=== PATIENT | female | born 1980 | race Caucasian/White ===

== ENCOUNTER 2022-11-17 02:42 | Emergency (ER) | payer SELFPAY ==
[~2022-11-17] VITALS: Ht 167.6 cm; Wt 59.0 kg
[2022-11-17] MEDS ORDERED: MIDAZOLAM HCL 2 MG/2 ML VIAL IV ONE (03:00)
[2022-11-17] MEDS ORDERED: ETOMIDATE 2MG/ML 10ML VIAL IV ONE (03:15)
[2022-11-17] MEDS ORDERED: SUCCINYLCHOLINE CHLORIDE 200MG/10ML IV ONE (03:15)
[2022-11-17] MEDS ORDERED: PROPOFOL 10MG/ML 100ML 100 ML IV ONE ×2 (03:15→08:30)
[2022-11-17 03:20] VITALS: PULSE 119; RESP 34
[2022-11-17] MEDS ORDERED: MIDAZOLAM 100MG/100ML PMX 100 ML IV PRN (03:30)
[2022-11-17] MEDS ORDERED: FENTANYL 2500MCG/250ML PMX 250 ML IV ONE (03:30)
[2022-11-17 04:05] LABS: BASOPHILS % 0.5 % (0.0-2.0); HEMATOCRIT. 37.4 % (36.0-48.0); HEMOGLOBIN. 12.4 g/dL (12.0-16.0); LYMPHOCYTES % 14.9 % (20.0-50.0); MEAN CORPUSCULAR HEMOGLOBIN 27.9 pg (28.0-32.0); MEAN CORPUSCULAR HGB CONC 33.1 g/dL (31.0-37.0); MEAN CORPUSCULAR VOLUME 84.4 fL (81.0-99.0); MEAN PLATELET VOLUME 7.7 fl (7.4-10.4); MONOCYTES % 4.4 % (2.0-8.0); NEUTROPHILS % 80.2 % (40.0-76.0); PLATELET 294 x1000/uL (130-400); RED BLOOD CELL COUNT 4.43 mill/uL (4.2-5.4); RED CELL DISTRIBUTION WIDTH 13.2 % (11.6-14.6); WHITE BLOOD COUNT 12.9 x1000/uL (4.5-11.0)
[2022-11-17 04:13] LABS: CHLORIDE 104 mEq/L (98-107); INDEX HEMOLYSI 3 (1-3); INDEX ICTERIC 1 (1-4); INDEX LIPEMIC 1 (1-3); POTASSIUM 4.1 mEq/L (3.5-5.1); SODIUM 135 mEq/L (136-145)
[2022-11-17 04:15] LABS: BG CARBOXYHEMOGLOBIN 0.3 % (0.5-1.5); BG DEOXYHEMOGLOBIN 0.1 % (0.0-5.0); BG FRACTION INSPIRED OXYGEN 100; BG HCO3 ACT 24.8 mmol/L (22.0-26.0); BG METHEMOGLOBIN 0.4 % (0.0-1.5); BG OXYGEN SATURATION 99.9 % (92.0-98.5); BG OXYHEMOGLOBIN 99.2 % (94.0-97.0); BG PCO2 26.7 mmHg (35.0-45.0); BG PH 7.586 (7.350-7.450); BG PO2 458.7 mmHg (75.0-100.0); BG SAMPLE SITE RIGHT RADIAL; BG TOTAL HEMOGLOBIN 13.2 g/dL (12.0-18.0); BG TOTAL RESPIRATORY RATE 34 b/min; BG VENT MODE VENT - AC
[2022-11-17 04:17] LABS: AMMONIA 20 uMol/L (<32)
[2022-11-17 04:25] LABS: ALANINE AMINOTRANSFERASE 49 IU/L (13-61); ALBUMIN 3.7 g/dL (3.4-5.0); ASPARTATE AMINOTRANSFERASE 61 IU/L (15-37); BILIRUBIN TOTAL 0.1 mg/dL (0.1-1.0); CALCIUM 8.2 mg/dL (8.5-10.1); CARBON DIOXIDE 25 mEq/L (21-32); CREATININE 0.5 mg/dL (0.6-1.3); ETHANOL BLOOD < 10 mg/dL (-10); GLUCOSE 179 mg/dL (70-105); NT PRO B-TYPE NATRIURETIC PEP 272 pg/mL (5-125); PROTEIN TOTAL 7.4 g/dL (6.0-8.3); UREA NITROGEN BLOOD 13 mg/dL (7-21)
[2022-11-17 04:27] LABS: PROTHROMBIN TIME 10.9 sec (9.6-11.0)
[2022-11-17 04:51] VITALS: PULSE 73; RESP 37
[2022-11-17 05:20] LABS: TROPONIN I HIGH SENSITIVITY 74 ng/L (<54)
[2022-11-17 05:21] LABS: LACTIC ACID 2.6 mmol/L (0.4-2.0)
[2022-11-17] MEDS ORDERED: LEVETIRACETAM 500MG PREMIX 100 ML IV ONE (05:45)
[2022-11-17] MEDS ORDERED: MIDAZOLAM HCL 100 MG in SODIUM CHLORIDE 0.9% 100 ML IV PRN (05:45)
[2022-11-17] MEDS ORDERED: FENTANYL CITRATE 2,500 MCG in SODIUM CHLORIDE 0.9% 200 ML IV PRN (06:00)
[2022-11-17] MEDS ORDERED: MANNITOL 12.5G (25%) VIAL 50ML IV ONE (06:00)
[2022-11-17] MEDS ORDERED: MANNITOL 20% 62.5 ML IV NR (06:00)
[2022-11-17] MEDS ORDERED: IOHEXOL-350 100 ML BOTTLE ONE (06:07)
[2022-11-17] MEDS ORDERED: NICARDIPINE 40MG/200ML PREMIX 200 ML IV PRN (06:15)
[2022-11-17 07:14] LABS: CLARITY URINE TURBID (CLEAR); COLOR URINE YELLOW (YELLOW); GLUCOSE URINE NEGATIVE (NEGATIVE); KETONES URINE NEGATIVE (NEGATIVE); LEUKOCYTE ESTERASE URINE NEGATIVE (NEGATIVE); NITRITE URINE NEGATIVE (NEGATIVE); OCCULT BLOOD URINE 2+ (NEGATIVE); PH URINE 6.5 (4.5-8.0); PROTEIN URINE 3+ (NEGATIVE); SPECIFIC GRAVITY URINE 1.021 (1.005-1.030)
[2022-11-17 07:16] LABS: WBC URINE 0-2 /hpf (0-2)
[2022-11-17 07:30] LABS: BACTERIA URINE TRACE; SQUAMOUS EPITHELIAL CELL URINE RARE /lpf (RARE/1+)
[2022-11-17 07:31] LABS: AMORPHOUS SEDIMENT URINE 1+ /lpf
[2022-11-17] MEDS ORDERED: PIPERACILLIN/TAZ 3.375G PREMIX 50 ML IV ONE (08:00)
[2022-11-17] MEDS ORDERED: ACETAMINOPHEN 325MG SUPP PR ONE (08:00)
[2022-11-17] MEDS ORDERED: VANCOMYCIN 1G PREMIX 200 ML IV ONE (08:00)
[2022-11-17] MEDS ORDERED: ACETAMINOPHEN 650MG/20.3ML UDC PO ONE (08:00)
[2022-11-17 08:14] LABS: *BARBITURATES SCREEN URINE NEGATIVE (NEGATIVE); *COCAINE SCREEN URINE NEGATIVE (NEGATIVE); CANNABINOID URINE SCREEN NEGATIVE (NEGATIVE); OPIATES URINE SCREEN NEGATIVE (NEGATIVE); PHENCYCLIDINE URINE SCREEN NEGATIVE (NEGATIVE)
[2022-11-17] MEDS ORDERED: ACETAMINOPHEN 650MG SUPP PR ONE (08:15)
[2022-11-17 08:23] LABS: *AMPHETAMINES SCREEN URINE PRESUMTIVE POSITIVE (NEGATIVE); *BENZODIAZEPINES SCREEN URINE PRESUMTIVE POSITIVE (NEGATIVE); ECSTASY MDMA SCREEN URINE CONF.TEST INDICATED (NEGATIVE); METHADONE URINE SCREEN PRESUMTIVE POSITIVE (NEGATIVE)
[2022-11-17 08:30] VITALS: BP 128/78; PULSE 155; RESP 20
[2022-11-17 08:43] VITALS: TEMP 102.3
== END 2022-11-17 09:04 | disposition short-term general hospital (02) ==
LOC: ER 02:54 → CANBEDREQ 21:49
DX: T50.991A Poisoning by other drugs, medicaments and biological substances, accidental (unintentional), initial encounter (principal); I60.8 Other nontraumatic subarachnoid hemorrhage; F11.20 Opioid dependence, uncomplicated; R56.9 Unspecified convulsions; Y92.89 Other specified places as the place of occurrence of the external cause; J96.91 Respiratory failure, unspecified with hypoxia
CPT/HCPCS: 80053; 80305; 81003; 80320; 82140; 82962; 83880; 83605; 85025; 85610; 86850; 86900; 86901; 87040; 84484; 36415; 71045; 70496; 70498; 70450; 82805; 82375; 31500; 93005; 96367; 96368; 96365; 99291; 99292; 87426; 36600; Q9967; J2150; J2250; J2543; J2704; C9803; Z7610 ×5; 94002; J3010; G0480